=== PATIENT | male | born 1950 | race Caucasian/White ===

== ENCOUNTER 2017-03-28 18:12 | Emergency (ER) | payer OTHER ==
[~2017-03-28] VITALS: Ht 185.4 cm; Wt 71.5 kg
[~2017-03-28 18:12] MED LIST: ACIPHEX20 MG PO; ADVAIR 250/501 DISK IH; ADVAIR PO; ASPIR-LOW81 MG PO; CELEXA20 MG PO; COLACE100 MG PO; ENDOCET 5-3251 EACH PO; ERGOCALCIF50000 UNIT PO; FLOMAX0.4 M1 PO; FLUOXETINE HCL20 MG PO; GABAPENTIN600 MG PO; HYDROXYZINE HCL10 MG PO; LEVAQUIN 7750 MG/150 PO; LEVEMIR FL100 UNIT/1 SC; LEVEMIR FL100 UNITS/; LEVEMIR FL100 UNITS/ SC; LEVEMIR FL100 UNITS/ SQ; LEVEMIR SC; LEVEMIR100 UNIT/2 SC; LISINOPRIL2.5 MG PO; LOVENOX40 MG/0.4 SC; LYRICA75 MG PO; MEGESTROL ACETA20 MG PO; MEGESTROL ACETA40 MG PO; NEURONTIN600 M1 PO; NEURONTIN600 MG PO; NOVOLOG (UNITS1 UNIT SC; PANTOPRAZOLE SO40 MG PO; PERCOCET 5/31 TABLET PO; PROAIR HFA8.5 GM IH; RESTORIL30 MG PO; SERTRALINE HCL50 MG PO; SIMVASTATIN10 MG PO; TEMAZEPAM30 MG PO; TRICOR145 MG PO; TRILIPIX135 MG PO; VIAGRA; VICODIN,LORT1 TABLET PO; ZESTRIL,PRINIV2.5 MG PO; ZOLOFT50 MG PO
[2017-03-28 19:25] LABS: HEMATOCRIT 51.4 % (38.0-50.0); MCH 29.4 PG (29.0-34.0); MCHC 33.3 G/DL (30.0-36.0); MCV 88.3 FL (86-99); MEAN PLAT.VOLUME 9.3 uM^3 (9.0-12.4); PLATELET COUNT 369 K/uL (156-360); RBC DIS.WIDTH-CV 13.8 % (11.8-14.6); RBC DIS.WIDTH-SD 44.8 % (39-53); RED BLOOD COUNT 5.82 M/uL (4.00-5.50); WHITE BLOOD COUNT 15.1 K/uL (4.1-10.2)
[2017-03-28 19:37] LABS: CHLORIDE 104 mEq/L (99-109); POTASSIUM 5.4 mEq/L (3.7-5.4); SODIUM 139 mEq/L (136-147)
[2017-03-28 19:39] LABS: GLUCOSE 149 mg/dL (70-99)
[2017-03-28 19:40] LABS: ANION GAP 8 MEQ/L (2-14)
[2017-03-28 19:41] LABS: TOTAL BILIRUBIN 0.3 mg/dL (0.0-1.0)
[2017-03-28 19:43] LABS: ALKALINE PHOSPHATASE 100 IU/L (3-129); GFR ESTIMATE (CALCULATED) > 59 mL/min/
[2017-03-28 19:44] LABS: UREA NITROGEN (BUN) 9 mg/dL (9-23)
[2017-03-28 19:46] LABS: LIPASE 15 U/L (1.0-51.0)
[2017-03-28 20:33] LABS: SERUM ETHYL ALCOHOL < 10 mg/dL
[2017-03-28 20:39] LABS: ADD MIUA? YES; BILIRUBIN NEGATIVE; BLOOD SMALL; COLOR YELLOW ((YELLOW)); GLUCOSE (STRIP) NEGATIVE; KETONES NEGATIVE; LEUKOCYTES NEGATIVE; NITRITE NEGATIVE; PROTEIN (STRIP) NEGATIVE; SPECIFIC GRAVITY 1.009 (1.000-1.030); UROBILINOGEN 0.2 MG/DL (0.2-1.0)
[2017-03-28 20:44] LABS: BACTERIA NONE SEEN /HPF; EPITHELIAL CELLS RARE /HPF; MUCUS TRACE /LPF; RED BLOOD CELLS 0-5 /HPF (0-5); UCUL ADDED? NO; WHITE BLOOD CELLS 0-5 /HPF (0-5)
[2017-03-29] MEDS ORDERED: ZOFRAN ODT4 MG PO (00:37)
[2017-03-29] MEDS ORDERED: BENTYL20 MG PO (00:37)
[2017-03-29] MEDS ORDERED: ULTRACET1 TABLET PO (00:39)
[2017-03-29 01:08] VITALS: BP 125/69
== END 2017-03-29 01:12 | disposition home or self-care (01) ==
LOC: EME 18:12
DX: K56.7 Ileus, unspecified (principal); R03.0 Elevated blood-pressure reading, without diagnosis of hypertension; K57.90 Diverticulosis of intestine, part unspecified, without perforation or abscess without bleeding; R91.1 Solitary pulmonary nodule; Z90.81 Acquired absence of spleen; E11.9 Type 2 diabetes mellitus without complications; K21.9 Gastro-esophageal reflux disease without esophagitis; J44.9 Chronic obstructive pulmonary disease, unspecified; F41.9 Anxiety disorder, unspecified; F32.9 Major depressive disorder, single episode, unspecified; Z79.4 Long term (current) use of insulin; Z72.0 Tobacco use
CPT/HCPCS: 74176; 80053; 81003; 83605; 83690; 85027; 99281; 99285; G0480; J2405; J3010; J7030